=== PATIENT | female | born 1955 | race African-American/Black ===

== ENCOUNTER 2021-04-12 07:48 | Outpatient (CLI) | payer BC, SELFPAY ==
[2021-04-12 11:05] LABS: SARS-CoV-2 RNA PCR Negative (Negative)
== END 2021-04-12 07:49 | disposition home or self-care (01) ==
LOC: CHSLAB 07:54
PROVIDERS: Visit Provider Family Medicine
DX: Z01.818 Encounter for other preprocedural examination (principal); Z20.822 Contact with and (suspected) exposure to COVID-19
CPT/HCPCS: C9803; U0003; U0005